=== PATIENT | female | born 1990 | race Caucasian/White ===

== ENCOUNTER 2022-03-29 11:34 | Emergency (ER) | payer BC ==
[~2022-03-29] VITALS: Ht 177.8 cm; Wt 65.9 kg
[2022-03-29] MEDS ORDERED: ADDERALL 5 MG TA5 MG PO (12:34)
[2022-03-29 13:12] LABS: BASO # 0.01 K/mm3 (0.02-0.10); EOS # 0.05 K/mm3 (0.04-0.40); EOS % 1.7 % (1.0-5.0); HEMATOCRIT 42.5 % (37.0-47.0); LYMPH# 0.63 K/mm3 (1.50-4.00); MEAN CELL VOLUME 87 fl (78-100); MEAN CORPUSCULAR HEMOGLOBIN 29 pg (27-31); MEAN CORPUSCULAR HGB CONC 33 g/dL (33-37); MEAN PLATELET VOLUME 10.2 fl (7.4-10.4); MONO # 0.29 K/mm3 (0.20-0.80); NEU # 2.05 K/mm3 (1.40-6.50); PLATELET COUNT 204 K/mm3 (130-400); RED BLOOD COUNT 4.88 M/mm3 (4.10-5.30); RED CELL DISTRIBUTION WIDTH 13.7 % (11.5-14.5)
[2022-03-29 13:24] LABS: ALBUMIN 4.4 g/dL (3.5-5.0); POTASSIUM 3.9 mmol/L (3.5-5.1)
[2022-03-29 13:26] LABS: TOTAL PROTEIN 7.3 g/dL (6.4-8.3)
[2022-03-29 13:28] LABS: TOTAL BILIRUBIN 0.5 mg/dL (0.2-1.2)
[2022-03-29 13:36] LABS: URINE APPEARANCE HAZY; URINE COLOR YELLOW
[2022-03-29 13:37] LABS: URINE BILIRUBIN NEGATIVE (NEGATIVE); URINE BLOOD NEGATIVE (NEGATIVE); URINE GLUCOSE NEGATIVE (NEGATIVE); URINE KETONE NEGATIVE (NEGATIVE); URINE LEUKOCYTE ESTERASE 2+ (NEGATIVE); URINE NITRATE NEGATIVE (NEGATIVE); URINE PROTEIN(semi-quant) NEGATIVE (NEGATIVE); URINE UROBILINOGEN NORMAL (NORMAL)
[2022-03-29] MEDS ORDERED: CEFDINIR300 MG PO (15:42)
[2022-03-29 15:55] VITALS: BP 108/62
== END 2022-03-29 15:56 | disposition home or self-care (01) ==
LOC: ED 11:34
PROVIDERS: Family Medicine
DX: N12 Tubulo-interstitial nephritis, not specified as acute or chronic (principal); E86.9 Volume depletion, unspecified; Z20.822 Contact with and (suspected) exposure to COVID-19; Z88.1 Allergy status to other antibiotic agents
CPT/HCPCS: J0696; J7030